=== PATIENT | male | born 1975 | race Caucasian/White ===

== ENCOUNTER 2020-06-02 13:56 | Emergency (ER) | payer MEDICARE, OTHER ==
[~2020-06-02] VITALS: Ht 172.7 cm; Wt 97.5 kg
--- NOTE | 2020-06-02 14:21 | NUR ---
SEND FROM URGENT CARE FOR HIGH BLOOD PRESSURE. DENIES ANY OTHER COMPLAINT. PATIENT AWAKE AND ALERT, USES SIGN LANGUAGE FOR COMMUNICATION. PATIENT ATTACHED TO THE ASSISTANT GENERAL MANAGER. NO DISTRESS NOTED.
[2020-06-02] MEDS ORDERED: NIFEdipine XL (30MG) 30 MG TAB PO STA (15:02)
[2020-06-02] MEDS ORDERED: NIFEdipine (10MG) 10 MG CAPSULE ONE (15:09)
[2020-06-02 15:41] LABS: BASOPHILS % (AUTO) 0.5 % (0.0-2.0); EOSINOPHILS % (AUTO) 5.2 % (0.0-6.0); HEMATOCRIT 41 % (39-51); HEMOGLOBIN 13.7 g/dL (13.5-17.5); LYMPHOCYTES # (AUTO) 2.9 /CMM (0.8-4.8); LYMPHOCYTES % (AUTO) 29.3 % (20.0-44.0); MEAN CORPUSCULAR HGB CONC 33 g/dl (31.0-36.0); MEAN CORPUSCULAR VOLUME 91 fL (80-96); MONOCYTES # (AUTO) 0.7 /CMM (0.1-1.30); MONOCYTES % (AUTO) 7.1 % (2.0-12.0); NEUTROPHILS # (AUTO) 5.7 /CMM (1.8-8.9); NEUTROPHILS % (AUTO) 57.9 % (43.0-81.0); PLATELET COUNT (AUTO) 229 /CMM (150-450); RED BLOOD CELL COUNT(AUTO) 4.55 MIL/uL (4.5-6.0); WHITE BLOOD COUNT (AUTO) 9.8 K/uL (4.3-11.0)
[2020-06-02 15:51] LABS: CALCIUM, SERUM 9.3 mg/dL (8.5-10.1); CREATININE 1.2 mg/dL (0.6-1.3); POTASSIUM 4.1 mmol/L (3.5-5.1)
--- NOTE | 2020-06-02 16:59 | NUR ---
PATIENT A/OX4, AMBULATORY WITH STEADY GAIT, DENIES PAIN AT THIS TIME. BLOOD PRESSURE IMPROVED. NO DISTRESS NOTED. Patient discharged to home in stable condition. Written and verbal after care instructions given. Patient verbalizes understanding of instruction.
[2020-06-02 17:00] VITALS: BP 169/87
== END 2020-06-02 17:01 | disposition home or self-care (01) ==
LOC: ER 14:07
DX: I10 Essential (primary) hypertension (principal)
CPT/HCPCS: 36415; 80048-TC; 85025-TC

== ENCOUNTER 2021-06-01 18:54 | Inpatient (IN) | payer MEDICARE, OTHER ==
[~2021-06-01] VITALS: Ht 172.7 cm; Wt 92.1 kg
[2021-06-01] MEDS ORDERED: IV NS 0.9% 1,000 ML BAG IV ONE (20:00)
[2021-06-01] MEDS ORDERED: ACETAMINOPHEN ES 500 MG TABLET ONE (20:10)
[2021-06-01 20:17] LABS: BASOPHILS # (AUTO) 0.1 K/uL (0.0-0.2); BASOPHILS % (AUTO) 0.3 % (0.0-2.0); EOSINOPHILS % (AUTO) 0.2 % (0.0-6.0); HEMATOCRIT 38 % (39-51); HEMOGLOBIN 12.3 g/dL (13.5-17.5); LYMPHOCYTES # (AUTO) 2.3 K/uL (0.8-4.8); LYMPHOCYTES % (AUTO) 10.6 % (20.0-44.0); MEAN CORPUSCULAR HGB CONC 33 g/dl (31.0-36.0); MEAN CORPUSCULAR VOLUME 92 fL (80-96); MONOCYTES # (AUTO) 1.5 K/uL (0.1-1.30); MONOCYTES % (AUTO) 6.7 % (2.0-12.0); NEUTROPHILS # (AUTO) 17.8 K/uL (1.8-8.9); NEUTROPHILS % (AUTO) 82.2 % (43.0-81.0); PLATELET COUNT (AUTO) 369 K/uL (150-450); RED BLOOD CELL COUNT(AUTO) 4.09 MIL/uL (4.5-6.0); WHITE BLOOD COUNT (AUTO) 21.7 K/uL (4.3-11.0)
[2021-06-01] MEDS ORDERED: CEFEPIME 1 GM in IV D5W 50 ML IV ONE (20:30)
[2021-06-01] MEDS ORDERED: VANCOMYCIN 1 GM in IV D5W 250 ML IV ONE (20:30)
[2021-06-01] MEDS ORDERED: ACETAMINOPHEN ES 500 MG TABLET PO ONE (20:30)
[2021-06-01] MEDS ORDERED: VANCOMYCIN 1 GM VIAL ONE (20:39)
[2021-06-01] MEDS ORDERED: CEFEPIME 1 GM VIAL ONE (20:39)
[2021-06-01 20:44] LABS: ALANINE AMINOTRANSFERASE 72 U/L (12-78); ALBUMIN 3.1 g/dL (3.4-5.0); ALKALINE PHOSPHATASE 117 U/L (46-116); ASPARTATE AMINOTRANSFERASE 49 U/L (15-37); BILIRUBIN,TOTAL 0.8 mg/dL (0.2-1.0); CALCIUM, SERUM 9.5 mg/dL (8.5-10.1); CARBON DIOXIDE 26 mmol/L (21-32); CHLORIDE 100 mmol/L (98-107); CREATININE 1.6 mg/dL (0.6-1.3); GLUCOSE 151 mg/dL (74-106); POTASSIUM 4.1 mmol/L (3.5-5.1); SODIUM SERUM 136 mmol/L (136-145); TOTAL PROTEIN, SERUM 8.7 g/dL (6.4-8.2); UREA NITROGEN, BLOOD 19 mg/dL (7-18)
[2021-06-01 20:57] LABS: BILIRUBIN,DIRECT 0.2 mg/dL (0.0-0.2)
[2021-06-01] MEDS ORDERED: CT SWABBABLE VALVE TRANS SET 1 EA INFUS.SET MC ONE (23:00)
[2021-06-01] MEDS ORDERED: IOHEXOL-350 100 ML VIAL IV ONE (23:00)
[2021-06-01] MEDS ORDERED: IV NS 0.9% 250 ML IV ONE (23:00)
[2021-06-01] MEDS ORDERED: ONDANSETRON HCL/PF 4 MG/2 ML VIAL IVP PRN (23:30)
[2021-06-01 23:45] VITALS: BP 116/66
[2021-06-01 23:46] LABS: BILIRUBIN,URINE SMALL (NEGATIVE); COLOR,URINE AMBER (YELLOW); LEUKOCYTE ESTERASE ,URINE Negative (NEGATIVE); NITRITE, URINE Negative (NEGATIVE); PH,URINE 5.5 (5.0-8.0); PROTEIN,URINE 100 mg/dl (NEGATIVE); UGLUCOSE Negative (NEGATIVE); UROBILINOGEN,URINE 0.2 EU/dL (0.2)
[2021-06-02] MEDS ORDERED: CEFTRIAXONE 1 G VIAL ONE (00:34)
[2021-06-02 00:44] VITALS: BP 113/74
[2021-06-02] MEDS: CEFTRIAXONE 1 G in IV D5W 50 ML IV SCH ×2 (00:52→21:40)
[2021-06-02] MEDS: IV NS 0.9% 1,000 ML IV PRN ×2 (00:54→21:40)
[2021-06-02 04:00] VITALS: BP 113/61
[2021-06-02 04:24] LABS: BASOPHILS % (AUTO) 0.2 % (0.0-2.0); EOSINOPHILS % (AUTO) 1.4 % (0.0-6.0); HEMATOCRIT 30 % (39-51); LYMPHOCYTES # (AUTO) 2.2 K/uL (0.8-4.8); LYMPHOCYTES % (AUTO) 14.6 % (20.0-44.0); MEAN CORPUSCULAR HGB CONC 33 g/dl (31.0-36.0); MEAN CORPUSCULAR VOLUME 91 fL (80-96); MONOCYTES # (AUTO) 1.5 K/uL (0.1-1.30); MONOCYTES % (AUTO) 9.8 % (2.0-12.0); PLATELET COUNT (AUTO) 275 K/uL (150-450); RED BLOOD CELL COUNT(AUTO) 3.33 MIL/uL (4.5-6.0); WHITE BLOOD COUNT (AUTO) 14.9 K/uL (4.3-11.0)
[2021-06-02 04:39] LABS: MAGNESIUM 1.9 mg/dL (1.8-2.4); PHOSPHORUS 3.2 mg/dL (2.5-4.9)
[2021-06-02 04:49] LABS: THYROID STIMULATING HORMONE 1.872 uIU/mL (0.358-3.74)
[2021-06-02 08:00] VITALS: BP 120/61
[2021-06-02] MEDS: ACETAMINOPHEN 325 MG TABLET PO PRN ×2 (08:05→17:07)
[2021-06-02] MEDS ORDERED: ATOR80TA PO (08:07)
[2021-06-02] MEDS ORDERED: AMLO-213 PO (08:07)
[2021-06-02] MEDS ORDERED: METO50TA16 PO (08:07)
[2021-06-02] MEDS ORDERED: CLOP75TA15 PO (08:07)
[2021-06-02] MEDS ORDERED: VALS160T29 PO (08:23)
[2021-06-02] MEDS ORDERED: PANTOPRAZOLE 40 MG VIAL IV SCH (09:00)
[2021-06-02 09:42] LABS: BASOPHILS % (AUTO) 0.2 % (0.0-2.0); EOSINOPHILS % (AUTO) 1.5 % (0.0-6.0); HEMATOCRIT 32 % (39-51); HEMOGLOBIN 10.4 g/dL (13.5-17.5); LYMPHOCYTES # (AUTO) 1.7 K/uL (0.8-4.8); LYMPHOCYTES % (AUTO) 11.3 % (20.0-44.0); MEAN CORPUSCULAR HGB CONC 33 g/dl (31.0-36.0); MEAN CORPUSCULAR VOLUME 91 fL (80-96); MONOCYTES # (AUTO) 0.9 K/uL (0.1-1.30); MONOCYTES % (AUTO) 6.3 % (2.0-12.0); NEUTROPHILS % (AUTO) 80.7 % (43.0-81.0); PLATELET COUNT (AUTO) 279 K/uL (150-450); RED BLOOD CELL COUNT(AUTO) 3.48 MIL/uL (4.5-6.0); WHITE BLOOD COUNT (AUTO) 14.8 K/uL (4.3-11.0)
[2021-06-02] MEDS: AZITHROMYCIN 500 MG in IV D5W 250 ML IV SCH (10:06)
[2021-06-02] MEDS: CLOPIDOGREL BISULFATE 75 MG TABLET PO SCH (10:06)
[2021-06-02] MEDS: VALSARTAN 80 MG TABLET PO SCH (10:07)
[2021-06-02] MEDS: AMLODIPINE BESYLATE 10 MG TABLET PO SCH (10:07)
[2021-06-02] MEDS: METOPROLOL TARTRATE 50 MG TABLET PO SCH ×2 (10:07→16:15)
[2021-06-02 12:00] VITALS: BP 126/69
[2021-06-02 12:01] LABS: ALBUMIN 2.6 g/dL (3.4-5.0); BILIRUBIN,TOTAL 0.7 mg/dL (0.2-1.0); CALCIUM, SERUM 8.7 mg/dL (8.5-10.1); CREATININE 1.2 mg/dL (0.6-1.3); MAGNESIUM 1.9 mg/dL (1.8-2.4); PHOSPHORUS 2.2 mg/dL (2.5-4.9); POTASSIUM 3.6 mmol/L (3.5-5.1); TOTAL PROTEIN, SERUM 7.3 g/dL (6.4-8.2)
[2021-06-02 15:29] LABS: CREATININE, URINE 290.8 MG/DL (30.0-125.0)
[2021-06-02] MEDS ORDERED: K PHOS NEUTRAL 250 MG TABLET PO ONE (15:30)
[2021-06-02 15:57] VITALS: BP 130/74
[2021-06-02 20:00] VITALS: BP 123/64
[2021-06-02] MEDS ORDERED: ATORVASTATIN 40 MG TABLET PO SCH (22:00)
[2021-06-03] VITALS: BP 148/84
[2021-06-03 04:00] VITALS: BP 134/71
[2021-06-03] MEDS: ACETAMINOPHEN 325 MG TABLET PO PRN (04:20)
[2021-06-03 06:13] LABS: BASOPHILS % (AUTO) 0.2 % (0.0-2.0); EOSINOPHILS % (AUTO) 1.7 % (0.0-6.0); HEMATOCRIT 31 % (39-51); HEMOGLOBIN 10.5 g/dL (13.5-17.5); LYMPHOCYTES # (AUTO) 1.9 K/uL (0.8-4.8); LYMPHOCYTES % (AUTO) 13.3 % (20.0-44.0); MEAN CORPUSCULAR HGB CONC 33 g/dl (31.0-36.0); MEAN CORPUSCULAR VOLUME 90 fL (80-96); MONOCYTES # (AUTO) 1.1 K/uL (0.1-1.30); MONOCYTES % (AUTO) 7.9 % (2.0-12.0); NEUTROPHILS # (AUTO) 10.8 K/uL (1.8-8.9); NEUTROPHILS % (AUTO) 76.9 % (43.0-81.0); PLATELET COUNT (AUTO) 291 K/uL (150-450)
[2021-06-03 07:28] LABS: ALANINE AMINOTRANSFERASE 63 U/L (12-78); ALBUMIN 2.3 g/dL (3.4-5.0); ALKALINE PHOSPHATASE 110 U/L (46-116); ASPARTATE AMINOTRANSFERASE 35 U/L (15-37); BILIRUBIN,TOTAL 0.7 mg/dL (0.2-1.0); CALCIUM, SERUM 8.4 mg/dL (8.5-10.1); CARBON DIOXIDE 23 mmol/L (21-32); CHLORIDE 104 mmol/L (98-107); CREATININE 1.1 mg/dL (0.6-1.3); GLUCOSE 107 mg/dL (74-106); MAGNESIUM 1.7 mg/dL (1.8-2.4); PHOSPHORUS 3.1 mg/dL (2.5-4.9); POTASSIUM 3.5 mmol/L (3.5-5.1); SODIUM SERUM 138 mmol/L (136-145); UREA NITROGEN, BLOOD 8 mg/dL (7-18)
[2021-06-03 08:00] VITALS: BP 143/82
[2021-06-03] MEDS ORDERED: PANTOPRAZOLE 40 MG TABLET.DR PO SCH (08:01)
[2021-06-03] MEDS: AZITHROMYCIN 500 MG in IV D5W 250 ML IV SCH (08:23)
[2021-06-03] MEDS: CLOPIDOGREL BISULFATE 75 MG TABLET PO SCH (08:26)
[2021-06-03] MEDS: VALSARTAN 80 MG TABLET PO SCH (08:27)
[2021-06-03] MEDS: AMLODIPINE BESYLATE 10 MG TABLET PO SCH (08:27)
[2021-06-03 08:28] VITALS: BP 143/82
[2021-06-03] MEDS ORDERED: ASPIRIN 81 MG TAB.CHEW PO SCH (09:00)
[2021-06-03] MEDS ORDERED: METOPROLOL TARTRATE 50 MG TABLET PO SCH (09:00)
[2021-06-03] MEDS: Magnesium 1GM/D5W 100ML PREMIX 100 ML IV SCH ×2 (09:30→10:23)
[2021-06-03] MEDS ORDERED: AMLO-213 PO (10:33)
[2021-06-03] MEDS ORDERED: METO50TA16 PO (10:33)
[2021-06-03] MEDS ORDERED: CLOP75TA15 PO (10:33)
[2021-06-03] MEDS ORDERED: ATOR80TA PO (10:33)
[2021-06-03] MEDS ORDERED: VALS160T29 PO (10:33)
[2021-06-03] MEDS ORDERED: LEVO750T46 PO (10:33)
[2021-06-03] MEDS ORDERED: ASPI-1169 PO (10:33)
== END 2021-06-03 14:20 | disposition home or self-care (01) | DRG 871 ==
LOC: ER 19:01 → TELE 22:05 → MED 06-03 08:04
PROVIDERS: ADMIT Registered Nurse; ATTEND Internal Medicine
DX: A41.9 Sepsis, unspecified organism (principal); N17.0 Acute kidney failure with tubular necrosis; J15.6 Pneumonia due to other Gram-negative bacteria; I31.3 Pericardial effusion (noninflammatory); Z20.822 Contact with and (suspected) exposure to COVID-19; I25.10 Atherosclerotic heart disease of native coronary artery without angina pectoris; E11.9 Type 2 diabetes mellitus without complications; D64.9 Anemia, unspecified; E66.9 Obesity, unspecified; I10 Essential (primary) hypertension; R07.81 Pleurodynia; H91.3 Deaf nonspeaking, not elsewhere classified; K86.89 Other specified diseases of pancreas; Z95.5 Presence of coronary angioplasty implant and graft; Z68.30 Body mass index [BMI] 30.0-30.9, adult
CPT/HCPCS: 36415; 71045-TC; 76770-TC; 80048-TC; 80053-TC; 80061-TC; 80076-TC; 82570-TC; 83605-TC; 83690-TC; 83735-TC; 83880; 84100-TC; 84300-TC; 84443-TC; 84484-TC; 85025-TC; 85730-TC; 87040-TC; 87081-TC; 87086-TC; 93307-TC; C9113; C9803; G0378; J0456; J0692; J0696; J3370; J3475; J7030; J7040; J7050; J7060; Q9967

== ENCOUNTER 2021-09-07 14:30 | Emergency (ER) | payer MEDICARE, OTHER ==
[~2021-09-07] VITALS: Ht 172.7 cm; Wt 87.1 kg
[2021-09-07 14:30] VITALS: BP 164/106
[~2021-09-07 14:30] MED LIST: AMLO-213 PO; ASPI-1169 PO; ATOR80TA PO; CLOP75TA15 PO; LEVO750T46 PO; METO50TA16 PO; VALS160T29 PO
[2021-09-07] MEDS ORDERED: HYDROCODONE/APAP 5/325MG TABLET ONE (16:54)
[2021-09-07] MEDS: HYDROCODONE/APAP 5/325MG TABLET PO ONE (16:56)
[2021-09-07] MEDS ORDERED: POLY17PO4 PO (17:06)
[2021-09-07] MEDS ORDERED: [UNRECOGNIZED DRUG - CODE] TP (17:11)
[2021-09-07] MEDS ORDERED: HYDR-4209 PO (17:16)
== END 2021-09-07 17:29 | disposition home or self-care (01) ==
LOC: ER 14:36
DX: K64.4 Residual hemorrhoidal skin tags (principal); I10 Essential (primary) hypertension; Z60.2 Problems related to living alone; Z79.899 Other long term (current) drug therapy; Z79.82 Long term (current) use of aspirin

== ENCOUNTER 2021-12-25 16:35 | Emergency (ER) | payer MEDICARE, OTHER ==
[~2021-12-25] VITALS: Ht 175.3 cm; Wt 86.2 kg
[~2021-12-25 16:35] MED LIST changes: +HYDR-4209 PO; +POLY17PO4 PO; +[UNRECOGNIZED DRUG - CODE] TP
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
--- NOTE | 2021-12-25 16:56 | NUR ---
DR EASON AT THE BEDSIDE
[2021-12-25] MEDS ORDERED: TDAP [DIPH/PERTUSSIS/TET] 0.5 ML VIAL IM ONE ×2 (17:00→17:13)
[2021-12-25] MEDS ORDERED: SILVER SULFADIAZINE CREAM 25 GM TUBE ONE (17:00)
[2021-12-25] MEDS ORDERED: SILVER SULFADIAZINE CREAM 25 GM TUBE TP ONE (17:00)
[2021-12-25 17:19] VITALS: BP 174/99
--- NOTE | 2021-12-25 17:19 | NUR ---
Patient discharged to home in stable condition. Written and verbal after care instructions given. Patient verbalizes understanding of instruction.
== END 2021-12-25 17:20 | disposition home or self-care (01) ==
LOC: ER 16:37
DX: T25.222A Burn of second degree of left foot, initial encounter (principal); I10 Essential (primary) hypertension; Z60.2 Problems related to living alone; Z79.899 Other long term (current) drug therapy
CPT/HCPCS: 90715

== ENCOUNTER 2022-10-03 17:55 | Inpatient (IN) | payer MEDICARE, OTHER ==
[~2022-10-03] VITALS: Ht 172.7 cm; Wt 90.7 kg
--- NOTE | 2022-10-03 18:11 | NUR ---
SAMUEL [id number] From [facility] "cough/congestion"
[2022-10-03] MEDS ORDERED: methylPREDNISolone SOD SUCC 125 MG/2ML VIAL ONE (18:40)
--- NOTE | 2022-10-03 18:43 | NUR ---
established iv line right ac 20 g ,
[2022-10-03] MEDS ORDERED: ALBUTEROL FS 2.5 MG/3 ML VIAL.NEB ONE ×2 (18:55→19:36)
[2022-10-03] MEDS ORDERED: IPRATROPIUM NEB FS 0.5 MG/2.5 ML AMPUL.NEB ONE ×2 (18:55→19:36)
[2022-10-03] MEDS ORDERED: methylPREDNISolone SOD SUCC 125 MG/2ML VIAL IV ONE (19:00)
[2022-10-03] MEDS ORDERED: IPRATROPIUM NEB FS 0.5 MG/2.5 ML AMPUL.NEB NEB ONE ×2 (19:00→20:00)
[2022-10-03] MEDS ORDERED: ALBUTEROL FS 2.5 MG/3 ML VIAL.NEB NEB ONE ×2 (19:00→20:00)
[2022-10-03 19:19] LABS: CALCIUM, SERUM 9.5 mg/dL (8.5-10.1); CARBON DIOXIDE 27 mmol/L (21-32); CHLORIDE 104 mmol/L (98-107); CREATININE 1.4 mg/dL (0.6-1.3); GLUCOSE 141 mg/dL (74-106); POTASSIUM 3.4 mmol/L (3.5-5.1); SODIUM SERUM 142 mmol/L (136-145); UREA NITROGEN, BLOOD 15 mg/dL (7-18)
[2022-10-03 19:32] LABS: ALANINE AMINOTRANSFERASE 36 U/L (12-78); ALBUMIN 4.2 g/dL (3.4-5.0); ALKALINE PHOSPHATASE 126 U/L (46-116); ASPARTATE AMINOTRANSFERASE 20 U/L (15-37); BILIRUBIN,DIRECT 0.1 mg/dL (0.0-0.2); BILIRUBIN,TOTAL 0.3 mg/dL (0.2-1.0); TOTAL PROTEIN, SERUM 8.8 g/dL (6.4-8.2)
--- NOTE | 2022-10-03 19:56 | NUR ---
COVID SWAB COLLECTED
[2022-10-03] MEDS ORDERED: ASPIRIN 325 MG TABLET PO ONE (20:00)
[2022-10-03] MEDS ORDERED: ASPIRIN 325 MG TABLET ONE (20:03)
[2022-10-03 20:21] LABS: BASOPHILS # (AUTO) 0.1 K/uL (0.0-0.2); BASOPHILS % (AUTO) 0.4 % (0.0-2.0); EOSINOPHILS % (AUTO) 3.4 % (0.0-6.0); HEMATOCRIT 49 % (39-51); HEMOGLOBIN 16.3 g/dL (13.5-17.5); LYMPHOCYTES # (AUTO) 2.7 K/uL (0.8-4.8); MEAN CORPUSCULAR HGB CONC 33 g/dl (31.0-36.0); MEAN CORPUSCULAR VOLUME 92 fL (80-96); MONOCYTES # (AUTO) 0.6 K/uL (0.1-1.30); MONOCYTES % (AUTO) 4.6 % (2.0-12.0); NEUTROPHILS # (AUTO) 9.7 K/uL (1.8-8.9); NEUTROPHILS % (AUTO) 71.6 % (43.0-81.0); PLATELET COUNT (AUTO) 257 K/uL (150-450); WHITE BLOOD COUNT (AUTO) 13.5 K/uL (4.3-11.0)
--- NOTE | 2022-10-03 20:45 | NUR ---
DR JOYA ON THE PHONE WITH DR LIZAMA FOR CARDIOLOGY CONSULT
[2022-10-03] MEDS ORDERED: METOPROLOL TARTRATE INJ 5 MG/5 ML AMPUL IV ONE (21:00)
[2022-10-03] MEDS ORDERED: ENOXAPARIN SODIUM 100 MG/ML DISP.SYRIN SQ ONE ×2 (21:00→21:02)
[2022-10-03] MEDS ORDERED: METOPROLOL TARTRATE INJ 5 MG/5 ML AMPUL ONE (21:02)
--- NOTE | 2022-10-03 21:22 | NUR ---
REPORT GIVEN TO ADONIS WAGGONER
[2022-10-03] MEDS ORDERED: ONDANSETRON HCL/PF 4 MG/2 ML VIAL IVP PRN (21:30)
[2022-10-03] MEDS ORDERED: MORPHINE SULFATE INJ 2 MG/ML DISP.SYRIN IV PRN (21:30)
[2022-10-03] MEDS ORDERED: MAG HYDROX/AL HYDROX/SIMETH 30 ML UDC PO PRN (21:30)
[2022-10-03] MEDS ORDERED: IPRATROPIUM NEB FS 0.5 MG/2.5 ML AMPUL.NEB NEB PRN (21:30)
[2022-10-03] MEDS ORDERED: ACETAMINOPHEN 325 MG TABLET PO PRN (21:30)
[2022-10-03] MEDS ORDERED: LEVALBUTEROL HCL NEB 1.25 MG/0.5 ML VIAL.NEB NEB PRN (21:30)
--- NOTE | 2022-10-03 22:00 | NUR ---
CHARTER BUS DRIVER ADMITTING NOTE PATIENT WAS TRANSFERRED FROM ER TO [facility] AT 2145H VIA GURNEY; PATIENT IS ALERT AND ORIENTED X 4, DEAF/MUTE BUT CAN CONVERSE THROUGH WRITING. ABLE TO MAKE NEEDS KNOWN. DENIES ANY PAIN OR DISCOMFORT AT THIS TIME; PATIENT ORIENTED TO STAFF AND ROOM; PATIENT'S BELONGINGS ACCOUNTED FOR; VITAL SIGNS TAKEN FOLLOWS: BP 165/98, HR 92 BPM, RR 18, TEMP 97.7 AND O2 SAT OF 96%; ON NASAL CANNULA 2LPM TOLERATING WELL AND NO DISTRESS NOTED; PATIENT HAS IV ACCESS ON RAC G #18; HOOKED TO TOGGLER; SAFETY MEASURES IMPLEMENTED, BED IN LOW POSITION, LOCKED, SIDE RAILS UP X 2, CALL LIGHT WITHIN REACH; WILL CONTINUE TO MONITOR THROUGHOUT SHIFT
--- NOTE | 2022-10-03 22:05 | NUR ---
PT TRANSFERED TO 3W VIA ACLS PROTOCOL
[2022-10-04] MEDS: METOPROLOL TARTRATE 25 MG TABLET PO SCH ×4 (00:14→18:00)
[2022-10-04] MEDS: methylPREDNISolone SOD SUCC 40 MG/ML VIAL IV SCH ×3 (04:31→21:10)
[2022-10-04 06:45] LABS: BASOPHILS % (AUTO) 0.1 % (0.0-2.0); HEMATOCRIT 42 % (39-51); HEMOGLOBIN 14.1 g/dL (13.5-17.5); LYMPHOCYTES # (AUTO) 1.1 K/uL (0.8-4.8); LYMPHOCYTES % (AUTO) 8.3 % (20.0-44.0); MEAN CORPUSCULAR HGB CONC 34 g/dl (31.0-36.0); MEAN CORPUSCULAR VOLUME 92 fL (80-96); MONOCYTES # (AUTO) 0.1 K/uL (0.1-1.30); NEUTROPHILS # (AUTO) 12.1 K/uL (1.8-8.9); NEUTROPHILS % (AUTO) 90.6 % (43.0-81.0); PLATELET COUNT (AUTO) 243 K/uL (150-450); RED BLOOD CELL COUNT(AUTO) 4.61 MIL/uL (4.5-6.0); WHITE BLOOD COUNT (AUTO) 13.3 K/uL (4.3-11.0)
--- NOTE | 2022-10-04 06:54 | NUR ---
TRANSFER CAR OPERATOR CLOSING NOTE PATIENT IN BED, A/O X 4, DEAF AND MUTE BUT CAN CONVERSE THROUGH WRITING AND ACTION; WITH NASAL CANNULA AT 2LPM, BREATHING EVENLY AND TOLERATING WELL, NO RESPIRATORY DISTRESS NOTED; WITH IV ACCESS ON RAC G18 - SALINE LOCK, INTACT AND PATENT; ADMINISTERED MEDICATIONS PRESCRIBED; PATIENT'S NEEDS ATTENDED; MONITORED PATIENT ACCORDINGLY; NO COMPLAINTS OF PAIN AND DISCOMFORT AT THIS TIME; SAFETY PRECAUTIONS IMPLEMENTED, BED IN LOW POSITION, LOCKED, SIDE RAILS UP X 2, CALL LIGHT WITHIN EASY REACH; WILL ENDORSE TO NEXT SHIFT NURSE FOR ELIAS
[2022-10-04 06:58] LABS: CALCIUM, SERUM 9.7 mg/dL (8.5-10.1); CREATININE 1.2 mg/dL (0.6-1.3); MAGNESIUM 2.1 mg/dL (1.8-2.4); PHOSPHORUS 2.6 mg/dL (2.5-4.9); POTASSIUM 3.9 mmol/L (3.5-5.1)
--- NOTE | 2022-10-04 07:30 | NUR ---
BARREL BUNG REMOVER AND DUMPER NOTES PT IN BED, AWAKE, ALERT AND ABLE TO MAKE NEEDS KNOWN THROUGH HAND GESTURES AND WRITING, DENIES PAIN AND SOB AT THIS TIME, CALL LIGHT PLACED WITHIN REACH, KEPT COMFORTABLE IN BED.
[2022-10-04 08:00] VITALS: BP 145/94
[2022-10-04] MEDS ORDERED: ASPI-1169 PO (08:15)
[2022-10-04] MEDS ORDERED: VALS80TA2 PO (08:15)
[2022-10-04] MEDS ORDERED: ATOR40TA PO (08:15)
[2022-10-04] MEDS ORDERED: AMLO-213 PO (08:15)
[2022-10-04] MEDS ORDERED: CLOP75TA15 PO (08:15)
[2022-10-04] MEDS ORDERED: METO25TA20 PO (08:15)
[2022-10-04] MEDS: ASPIRIN 81 MG TAB.CHEW PO SCH (08:33)
[2022-10-04] MEDS ORDERED: ENOXAPARIN SODIUM 120 MG/0.8 ML DISP.SYRIN SQ SCH (09:00)
[2022-10-04 12:00] VITALS: BP 144/90
[2022-10-04] MEDS ORDERED: IOHEXOL-350 100 ML VIAL IV ONE (16:54)
[2022-10-04] MEDS ORDERED: IV NS 0.9% 250 ML IV ONE (16:54)
[2022-10-04] MEDS ORDERED: CT SWABBABLE VALVE TRANS SET 1 EA INFUS.SET MC ONE (16:54)
[2022-10-04] MEDS: METOPROLOL TARTRATE INJ 5 MG/5 ML AMPUL IVP PRN ×6 (17:25→17:50)
[2022-10-04] MEDS ORDERED: NITROGLYCERIN 0.4 MG/TAB BOTTLE SL ONE (17:30)
[2022-10-04] MEDS ORDERED: METOPROLOL TARTRATE INJ 5 MG/5 ML AMPUL ONE ×2 (17:33→17:50)
--- NOTE | 2022-10-04 18:07 | NUR ---
PTA NOTES METOPROLOL NOT ADMINISTERED, PT CURRENTLY UNDERGOING [facility].
--- NOTE | 2022-10-04 18:25 | NUR ---
HOUSEKEEPING AND LAUNDRY TEAM LEADER NOTES PT BACK FROM [facility] VIA WHEELCHAIR, PT IS AWAKE, ALERT AND ORIENTED, NO COMPLAINT OF PAIN, NOT IN DISTRESS, EATING DINNER, CALL LIGHT WITHIN REACH, NEEDS ATTENDED.
--- NOTE | 2022-10-04 19:20 | NUR ---
noc rn opening note received patient in bed, a/ox4. deaf and mute, communicates with pen and paper. no s/s of apparent distress on room air. denies any pain at this time. Reading sr with 75 bpm at this time. safety in place. patient re-oriented and encouraged with the use of call light. will continue with patient's plan of care.
[2022-10-05] VITALS: BP 152/99
[2022-10-05] MEDS: METOPROLOL TARTRATE 25 MG TABLET PO SCH ×3 (01:24→11:21)
[2022-10-05 03:06] LABS: BILIRUBIN,URINE NEGATIVE (NEGATIVE); COLOR,URINE YELLOW (YELLOW); LEUKOCYTE ESTERASE ,URINE NEGATIVE (NEGATIVE); NITRITE, URINE NEGATIVE (NEGATIVE); PROTEIN,URINE NEGATIVE (NEGATIVE); UGLUCOSE 1+ mg/dL (NEGATIVE); UROBILINOGEN,URINE 0.2 EU/dL (0.2)
[2022-10-05 03:52] LABS: BACTERIA,URINE Rare /HPF (None Seen); RBC,URINE 0-2 /HPF (0-2); SQUAMOUS EPITHELIAL CELL,UR Few /HPF (None Seen); WBC,URINE 0-2 /HPF (0-3)
[2022-10-05 04:00] VITALS: BP 152/87
[2022-10-05] MEDS: methylPREDNISolone SOD SUCC 40 MG/ML VIAL IV SCH ×2 (04:58→12:38)
--- NOTE | 2022-10-05 07:24 | NUR ---
noc rn closing note No significant change with patient. needs attended. will endorse to dalia Kaur for continuity of care.
--- NOTE | 2022-10-05 07:50 | NUR ---
telegraph messenger opening note Patient in bed, a/ox4. deaf and mute, communicates with pen and paper. no s/s of apparent distress on room air. Reading sr with 65 bpm at this time. Safety precautions in place: bed in low, locked position; siderails up x 2; call light within reach. Will continue to monitor.
[2022-10-05 08:00] VITALS: BP 156/98
[2022-10-05] MEDS ORDERED: VALSARTAN 80 MG TABLET PO SCH (09:30)
[2022-10-05] MEDS: ASPIRIN 81 MG TAB.CHEW PO SCH (09:51)
[2022-10-05] MEDS ORDERED: METO25TA20 PO (10:55)
[2022-10-05] MEDS ORDERED: MAGNESIUM HYDROXIDE 30 ML UDC PO PRN (11:00)
[2022-10-05] MEDS ORDERED: CLONIDINE HCL 0.1 MG TABLET PO PRN (11:00)
[2022-10-05 12:17] VITALS: BP 170/92
[2022-10-05 15:24] VITALS: BP 170/90
--- NOTE | 2022-10-05 15:30 | NUR ---
DISCHARGED NOTE PATIENT DISCHARGED TO [facility] IN STABLE CONDITION. A/O X4. ON RA, TOLERATING WELL WITH SPO2 OF 95%. NO SOB/DISTRESS NOTED. VITAL SIGNS TAKEN, STABLE AND RECORDED. BP IS 147/95 AFTER ADMINISTRATION OF CLONIDINE. PATIENT SKIN IS INTACT. DENIES PAIN OR DISCOMFORT AT THIS TIME. ALL BELONGINGS ACCOUNTED TO THE PATIENT. DISCHARGED INSTRUCTIONS RELAYED TO PATIENT. IV ACCESS REMOVED WITH NO ACTIVE BLEEDING NOTED. NOTIFIED [facility] ABOUT THE TRANSFER. PATIENT LEFT THE UNIT VIA GURNEY ACCOMPANIED BY AMBULANCE STAFF.DISCHARGED.
--- NOTE | 2022-10-05 17:15 | NUR ---
DISCHARGED NOTES PATIENT DISCHARGED TO [facility] IN STABLE CONDITION. A/O X4. ON RA, TOLERATING WELL WITH SPO2 OF 95%. NO SOB/DISTRESS NOTED. VITAL SIGNS TAKEN, STABLE AND RECORDED. PATIENT REFUSED TO TAKE PICTURES OF WOUNDS, REFUSED PAIN MEDICATIONS PRIOR TO LEAVING THE UNIT, DENIES PAIN OR DISCOMFORT AT THIS TIME. ALL BELONGINGS ACCOUNTED TO THE PATIENT. DISCHARGED INSTRUCTIONS RELAYED TO PATIENT. IV ACCESS REMOVED WITH NO ACTIVE BLEEDING NOTED. PATIENT LEFT THE UNIT VIA WHEELCHAIR ACCOMPANIED BY FAMILY MEMBERS AND [facility]. DISCHARGED. Addendum: 10/05/22 at 1716 by OLENA LIZAMA RN WRONG ENTRY
== END 2022-10-05 16:08 | disposition home or self-care (01) | DRG 682 ==
LOC: ER 17:57 → TELE 21:05
PROVIDERS: ADMIT Nurse Practitioner Acute Care; ATTEND Internal Medicine
DX: N17.0 Acute kidney failure with tubular necrosis (principal); I21.A1 Myocardial infarction type 2; J44.1 Chronic obstructive pulmonary disease with (acute) exacerbation; D68.59 Other primary thrombophilia; J98.11 Atelectasis; I25.10 Atherosclerotic heart disease of native coronary artery without angina pectoris; Z59.01 Sheltered homelessness; E87.6 Hypokalemia; Z20.822 Contact with and (suspected) exposure to COVID-19; Z95.5 Presence of coronary angioplasty implant and graft; G89.29 Other chronic pain; I10 Essential (primary) hypertension; H91.3 Deaf nonspeaking, not elsewhere classified; Z79.82 Long term (current) use of aspirin; Z79.02 Long term (current) use of antithrombotics/antiplatelets; Z79.899 Other long term (current) drug therapy; D72.829 Elevated white blood cell count, unspecified; E66.9 Obesity, unspecified; Z68.30 Body mass index [BMI] 30.0-30.9, adult; E11.9 Type 2 diabetes mellitus without complications; F17.210 Nicotine dependence, cigarettes, uncomplicated
CPT/HCPCS: 36415; 71045-TC; 72131-TC; 75574; 80048-TC; 80061-TC; 80076-TC; 81001; 83735-TC; 83880; 84100-TC; 84484-TC; 85025-TC; 87081-TC; 93307-TC; A4223; C9803; G0378; J1650; J2920; J2930; J3490; J7030; J7050; Q9967

== ENCOUNTER 2022-10-13 01:06 | Emergency (ER) | payer MEDICARE, OTHER ==
[~2022-10-13] VITALS: Ht 177.8 cm; Wt 113.4 kg
[~2022-10-13 01:06] MED LIST changes: +ATOR40TA PO; -ATOR80TA PO; -HYDR-4209 PO; -LEVO750T46 PO; +METO25TA20 PO; -METO50TA16 PO; -POLY17PO4 PO; -VALS160T29 PO; +VALS80TA2 PO; -[UNRECOGNIZED DRUG - CODE] TP
[2022-10-13] MEDS ORDERED: IV NS 0.9% 500 ML BAG IV ONE (01:30)
[2022-10-13] MEDS ORDERED: ONDANSETRON HCL/PF 4 MG/2 ML VIAL IVP ONE (01:30)
[2022-10-13] MEDS ORDERED: methylPREDNISolone SOD SUCC 125 MG/2ML VIAL IV ONE (01:30)
--- NOTE | 2022-10-13 01:30 | NUR ---
[email or web address] from group home with complains of chest pain that began several hours ago located on the left chest. He also complains of feeling as if his tongue is swollen. He states that he did have 1 episode of vomiting but denied any diarrhea or abdominal pain. Pt is AAO x 4 however is deaf and mute and history and complaints were obtained by having the patient write out complaints and answer questions that way. Pt does not appear in distress, breathing unlabored. Pt attached to monitor and pulse ox. Awaiting MD moscoso
--- NOTE | 2022-10-13 01:33 | NUR ---
RAC 18G, BLOOD DRAWN, COVID SWAB COLLECTED, SENT TO LAB
[2022-10-13] MEDS ORDERED: ONDANSETRON HCL/PF 4 MG/2 ML VIAL ONE (01:35)
[2022-10-13] MEDS ORDERED: HYDROCORTISONE SOD SUCCINATE 100 MG/2 ML VIAL ONE (01:35)
--- NOTE | 2022-10-13 01:39 | NUR ---
PT TAKEN TO CT VIA MICAELA
[2022-10-13 01:51] LABS: BASOPHILS % (AUTO) 0.2 % (0.0-2.0); EOSINOPHILS % (AUTO) 1.2 % (0.0-6.0); HEMATOCRIT 49 % (39-51); HEMOGLOBIN 16.3 g/dL (13.5-17.5); LYMPHOCYTES # (AUTO) 5.4 K/uL (0.8-4.8); LYMPHOCYTES % (AUTO) 41.8 % (20.0-44.0); MEAN CORPUSCULAR HGB CONC 33 g/dl (31.0-36.0); MEAN CORPUSCULAR VOLUME 91 fL (80-96); MONOCYTES # (AUTO) 0.9 K/uL (0.1-1.30); MONOCYTES % (AUTO) 6.6 % (2.0-12.0); NEUTROPHILS # (AUTO) 6.5 K/uL (1.8-8.9); NEUTROPHILS % (AUTO) 50.2 % (43.0-81.0); PLATELET COUNT (AUTO) 245 K/uL (150-450); RED BLOOD CELL COUNT(AUTO) 5.34 MIL/uL (4.5-6.0); WHITE BLOOD COUNT (AUTO) 12.9 K/uL (4.3-11.0)
--- NOTE | 2022-10-13 01:53 | NUR ---
PT RETURNED TO ER BED [address]
[2022-10-13 02:02] LABS: CALCIUM, SERUM 9.3 mg/dL (8.5-10.1); CARBON DIOXIDE 25 mmol/L (21-32); CHLORIDE 104 mmol/L (98-107); CREATININE 1.3 mg/dL (0.6-1.3); GLUCOSE 179 mg/dL (74-106); POTASSIUM 3.4 mmol/L (3.5-5.1); SODIUM SERUM 138 mmol/L (136-145); UREA NITROGEN, BLOOD 13 mg/dL (7-18)
[2022-10-13 02:14] LABS: ALANINE AMINOTRANSFERASE 67 U/L (12-78); ALBUMIN 3.4 g/dL (3.4-5.0); ALKALINE PHOSPHATASE 114 U/L (46-116); ASPARTATE AMINOTRANSFERASE 26 U/L (15-37); BILIRUBIN,DIRECT 0.1 mg/dL (0.0-0.2); BILIRUBIN,TOTAL 0.5 mg/dL (0.2-1.0); TOTAL PROTEIN, SERUM 7.5 g/dL (6.4-8.2)
--- NOTE | 2022-10-13 03:23 | NUR ---
MRSA swab collected by LIANNE Lima, sent to lab
--- NOTE | 2022-10-13 04:00 | NUR ---
PATIENT REQUESTING FOR URINAL,NEEDS ATTENDED.
--- NOTE | 2022-10-13 04:01 | NUR ---
NOTED A MODERATE AMOUNT OF CLEAR, YELLOW URINE. KEPT COMFORTABLE. CALL LIGHT WITHIN REACH OF PATIENT.
[2022-10-13 04:15] VITALS: BP 0/0
--- NOTE | 2022-10-13 04:15 | NUR ---
NOTED PATIENT IS UNRESPONSIVE. PULSE IN UN APPRECIATED, - CHEST RISE NOTED. CODE BLUE INITIATED. CPR STARTED.
--- NOTE | 2022-10-13 04:16 | NUR ---
10/13/22 (415H) CODE BLUE INITIATED -415H - CPR AND AMBUBAGGING STARTED. -7H - EPINIPHRINE 1 AMP IV PUSHED; 1 AMP ATROPINE SULFATE IV PUSHED. - CONTINUOUS CPR AND AMBUBAGGING AT 15LPM -8H - 1GM CALCIUM CHLORIDE IV PUSHED, SODIUM BICARB 50MEQ IV PUSHED. -0420H - PULSE CHECKED, NO PULSE, NO RESPI, NO BP; CONTINUE CPR -419H - EPINEPHRINE 1 AMP IV PUSHED. CONTINUOUS CPR AND AMBUBAGGING -420H - INTUBATION DONE BY DR TREVINO USING ET TUBE SIZE 7.5 WITH 27CM LIP LEVEL -0422H - PULSE CHECKED, STILL UNAPPRECIATED, -PULSE, -RESPI, -BP -0423H - EPINEPHRINE 1 AMP IV PUSHED. CONTINUOUS CPR AND AMBUBAGGING -0425H - PULSE CHECKED. STILL UNAPPRECIATED, -PULSE, -RESPI, -BP -0426H - EPINEPHRINE 1 AMP IV PUSHED. CONTINUOUS CPR AND AMBUBAGGING -8H - PULSE CHECKED. STILL UNAPPRECIATED, - PULSE,-RESPI,-BP -0429H - EPINEPHRINE 1 AMP IV PUSHED. CONTINUOUS CPR AND AMBUBAGGING -430H - TIME OF DECLARED BY DR TREVINO.
--- NOTE | 2022-10-13 04:17 | NUR ---
PATIENT IS WITH CONTINUOUS CPR, ATTACHED TO DEFIBRILLATOR, AMBUBAGGING DONE AT 15LPM, DR TREVINO CODE AEROSPACE MEDICINE PHYSICIAN. BS CHECKED 154MG/DL
--- NOTE | 2022-10-13 04:31 | NUR ---
TIME OF CALLED BY DR. URIEL CHAPMAN
--- NOTE | 2022-10-13 04:57 | NUR ---
called [facility] [employer]. spoke to Marcellus. patient is eligible for donation with
--- NOTE | 2022-10-13 05:00 | NUR ---
VOICE MESSAGE LEFT TO JANY () [phone]
--- NOTE | 2022-10-13 05:11 | NUR ---
UPDATED JANY () [phone] REGARDING PT WITH PRINT BINDING WORKER.
--- NOTE | 2022-10-13 05:16 | NUR ---
spoke to live source operator, Daniel bhatt Per her it's rejected and it is not a live source operator's case.
--- NOTE | 2022-10-13 05:48 | NUR ---
JANY () AT PT'S BEDSIDE
--- NOTE | 2022-10-13 06:19 | NUR ---
JANY VISITED THE BODY. PER HER PAATIENT HAD NO PRIMARY DOCTOR AND NO ASSIGNED [facility] AND THEY ARE NOT ABLE TO AFFORD THAT. TOOK ALL THE BELONGINGS AND AUTHORIZED RELEASING BODY TO THE [facility].
--- NOTE | 2022-10-13 06:30 | NUR ---
RC FREITAS AT [facility] WHO AUTHORIZED TRANSFERRING BODY TO THE [facility].
--- NOTE | 2022-10-13 06:34 | NUR ---
POST MORTEM CARE DONE, PATIENT PLACED ON BODY BAG WITH APPROPRIATE LABELS IN PLACE.
--- NOTE | 2022-10-13 06:40 | NUR ---
PATIENT TRANSFERRED TO [facility].
[2022-10-13] MEDS ORDERED: EPINEPHRINE (1:10,000) SYRINGE 1 MG/10 ML DISP.SYRIN ONE (08:40)
[2022-10-13] MEDS ORDERED: ATROPINE SULFATE 1 MG/10 ML DISP.SYRIN ONE (08:40)
[2022-10-13] MEDS ORDERED: SODIUM BICARBONATE SYR 50 MEQ/50 ML DISP.SYRIN ONE (08:40)
--- NOTE | 2022-10-13 10:00 | NUR ---
decedent's Amarilis Shearer [phone] came here & we used the [employer] for ALS survey questionnaire designer#[id number]. per spouse unable to afford mortuary & signed consent for [facility]. Provided spouse w/ all the contact info for [facility] & Certificate.
== END 2022-10-13 07:04 ==
LOC: ER 01:12
DX: I46.9 Cardiac arrest, cause unspecified (principal); I11.0 Hypertensive heart disease with heart failure; I50.9 Heart failure, unspecified; J96.90 Respiratory failure, unspecified, unspecified whether with hypoxia or hypercapnia; Z95.1 Presence of aortocoronary bypass graft; Z59.00 Homelessness unspecified; Z79.899 Other long term (current) drug therapy; Z79.82 Long term (current) use of aspirin; Z20.822 Contact with and (suspected) exposure to COVID-19
CPT/HCPCS: 99285; 92950; 31500; 96374; 70490; 71045; 96375; 87426; 93005; 85025; 80048; 80076; 36415; 84484; 85730; 87081; 83880; 82962; J0461; J0171; J1720; J3490; J2405; J7040; C9803